=== PATIENT | female | born 1960 | race Two or more races ===

== ENCOUNTER 2023-08-07 12:00 | Day surgery (SDC) | payer MEDICAID ==
[2023-08-03 11:44] LABS: BASOPHILS # (AUTO) 0.1 X10'3 (0-0.2); BASOPHILS % (AUTO) 0.7 % (0-1); EOSINOPHILS # (AUTO) 0.1 X10'3 (0-0.9); EOSINOPHILS % (AUTO) 0.9 % (0-6); HEMATOCRIT 42.6 % (35.0-45.0); HEMOGLOBIN 14.3 g/dl (12.0-16.0); MEAN CORPUSCULAR HEMOGLOBIN 30.5 PG (27.0-31.0); MEAN CORPUSCULAR HGB CONC 33.5 g/dL (33.0-36.5); MEAN CORPUSCULAR VOLUME 91.2 FL (78-98); MEAN PLATELET VOLUME 8.5 FL (7.4-10.4); MONOCYTES # (AUTO) 0.4 X10'3 (0-0.9); MONOCYTES % (AUTO) 4.7 % (2-12); NEUTROPHILS # (AUTO) 6.2 X10'3 (1.8-7.7); NEUTROPHILS % (AUTO) 70.7 % (42-75); PLATELET COUNT 228 X10'3 (140-440); RED BLOOD COUNT 4.67 X10'6 (4.20-5.60); RED CELL DISTRIBUTION WIDTH 14.7 % (11.5-14.5); WHITE BLOOD COUNT 8.8 X10'3 (4.5-11.0)
[2023-08-03 12:01] LABS: APTT 31 SECONDS (22-32); PROTHROMBIN TIME 10.7 SECONDS (9.0-12.0)
[2023-08-03 12:02] LABS: ALBUMIN 3.7 G/DL (3.4-5.0); ANION GAP 10 (8-16); BLOOD UREA NITROGEN 18 MG/DL (7-18); BUN/CREATININE RATIO 26.1 (10.0-20.0); CALCIUM 9.7 MG/DL (8.5-10.1); CHLORIDE 104 MMOL/L (99-107); CHOL/HDL RATIO 3.2 (0.00-4.99); CHOLESTEROL 123 MG/DL (0-200); CREATININE 0.69 MG/DL (0.40-0.90); GLUCOSE 179 MG/DL (70-104); HDL CHOLESTEROL 39 MG/DL (35-60); LDL CHOLESTEROL 70 MG/DL (50-100); POTASSIUM 4.1 MMOL/L (3.5-5.1); SODIUM 139 MMOL/L (135-145); TOTAL CARBON DIOXIDE 25.2 MMOL/L (24-32); TRIGLYCERIDES 110 MG/DL (20-135); eGFR 86 ML/MIN
[2023-08-07] VITALS (7 sets, daily range): BP systolic 132–150; BP diastolic 70–81; PULSE 70–86; RESP 16; TEMP 98.8; O2SAT 96–98
[~2023-08-07] VITALS: Ht 154.9 cm; Wt 109.3 kg
[2023-08-07] MEDS ORDERED: diphenhydrAMINE 25mg capsule PO PRN (12:35)
[2023-08-07] MEDS ORDERED: normal saline 1,000 ML IV SCH (12:35)
[2023-08-07] MEDS ORDERED: LORazepam 0.5 MG tablet PO PRN (12:35)
[2023-08-07] MEDS ORDERED: heparin 1,000unit/ml 10ml vial 10 ML ONE (13:25)
[2023-08-07] MEDS ORDERED: verapamil 2.5 mg/ml inj IV ONE (13:25)
[2023-08-07] MEDS ORDERED: fentaNYL/PF 50MCG/1 ML 2ML syringe ONE (13:25)
[2023-08-07] MEDS ORDERED: iohexol 350MG/ML 100ml bottle IV ONE (13:25)
[2023-08-07] MEDS ORDERED: heparin 1,000 UNITS/NS 500ml 500 ML ONE (13:25)
[2023-08-07] MEDS ORDERED: midazolam 1 mg/ML 2ml injection ONE ×2 (13:25→14:43)
[2023-08-07] MEDS ORDERED: nitroGLYCERIN 500mcg/5mL D5W 5 ML IV ONE (13:25)
[2023-08-07] MEDS ORDERED: LIDOcaine 1% (10mg/ml) 2ml vial ONE (13:25)
[2023-08-07] MEDS ORDERED: IRBE75TA8 PO (13:50)
[2023-08-07] MEDS ORDERED: DULA3PEN SUBCUT (13:50)
[2023-08-07] MEDS ORDERED: ATOR10TA70 PO (13:50)
[2023-08-07] MEDS ORDERED: EMPA25TA PO (13:50)
[2023-08-07] MEDS ORDERED: METF-438 PO (13:50)
[2023-08-07] MEDS ORDERED: METO-384 PO (13:50)
[2023-08-07] MEDS ORDERED: APIX5TAB3 PO (13:50)
[2023-08-07] MEDS ORDERED: GLIM2TAB6 PO (13:50)
[2023-08-07] MEDS ORDERED: LIDOcaine 1% (10mg/ml)w/preservative inj. 20ml MDV ONE (14:10)
[2023-08-07] MEDS ORDERED: HYDROcodone/acetaminophen 10/325mg tab PO PRN (15:35)
[2023-08-07] MEDS ORDERED: HYDROcodone/acetaminophen 5mg/325mg tablet PO PRN (15:35)
[2023-08-07 16:41] LABS: ISTAT HGB ART 12.6 g/dl (12.0-16.0); ISTAT Hct ART 37 %PCV (35-45); ISTAT O2 SATURATION ARTERIAL 95 % (95-98); ISTAT SOURCE ART
[2023-08-08 06:11] LABS: ISTAT HGB MIX 13.3 g/dl (12.0-16.0); ISTAT Hct MIX 39 %PCV (35-45); ISTAT O2 SATURATION MIX VENOUS 68 % (60-80); ISTAT SOURCE VEN
== END 2023-08-07 17:06 | disposition home or self-care (01) ==
LOC: SSTAY O 12:00
PROVIDERS: ATTEND Student in an Organized Health Care Education/Training Program
DX: I08.0 Rheumatic disorders of both mitral and aortic valves (principal); I25.10 Atherosclerotic heart disease of native coronary artery without angina pectoris; I48.91 Unspecified atrial fibrillation; I49.5 Sick sinus syndrome; I10 Essential (primary) hypertension; E78.5 Hyperlipidemia, unspecified; E11.9 Type 2 diabetes mellitus without complications; Z95.0 Presence of cardiac pacemaker; Z79.84 Long term (current) use of oral hypoglycemic drugs; Z79.899 Other long term (current) drug therapy; Z79.01 Long term (current) use of anticoagulants
CPT/HCPCS: 36415; 80048; 80061; 82803; 82948; 85014; 85025; 85610; 85730; 93005; 93456; 99152; J1644; J2250; J3010; J3490; J7030; Q9967; 99153; A6258; A6402; C1751; C1894